=== PATIENT | female | born 1940 | race Caucasian/White ===

== ENCOUNTER → 2023-05-27 13:55 | Outpatient (REF) | payer MEDICARE, OTHER, SELFPAY | LOC: HWEVLT 13:55 | PROVIDERS: ATTENDING PHYSICIAN Radiology Diagnostic Radiology | DX: I83.893 Varicose veins of bilateral lower extremities with other complications (principal) | CPT/HCPCS: 93970 ==

== ENCOUNTER → 2023-07-16 13:07 | Outpatient (REF) | payer MEDICARE, OTHER, SELFPAY | LOC: HWEVLT 13:07 | PROVIDERS: ATTENDING PHYSICIAN Radiology Diagnostic Radiology | DX: I83.892 Varicose veins of left lower extremity with other complications (principal) | CPT/HCPCS: 36478 ==

== ENCOUNTER → 2023-07-31 11:29 | Outpatient (REF) | payer MEDICARE, OTHER, SELFPAY | LOC: HWEVLT 11:29 | PROVIDERS: ATTENDING PHYSICIAN Radiology Diagnostic Radiology | DX: I83.892 Varicose veins of left lower extremity with other complications (principal) | CPT/HCPCS: 93971 ==

== ENCOUNTER → 2023-11-06 14:38 | Outpatient (REF) | payer MEDICARE, OTHER, SELFPAY | LOC: HWRAD 14:38 | PROVIDERS: ATTENDING PHYSICIAN Urology | DX: N20.0 Calculus of kidney (principal) | CPT/HCPCS: 74018; 76775 ==

== ENCOUNTER → 2024-04-08 14:09 | Outpatient (REF) | payer MEDICARE, OTHER, SELFPAY | LOC: RAD 14:09 | PROVIDERS: ATTENDING PHYSICIAN Podiatrist Foot & Ankle Surgery; FAMILY PHYSICIAN Nurse Practitioner Adult Health | DX: M79.604 Pain in right leg (principal); R60.0 Localized edema | CPT/HCPCS: 93971 ==

== ENCOUNTER → 2024-04-23 13:57 | Outpatient (REF) | payer MEDICARE, OTHER, SELFPAY | LOC: RAD 13:57 | PROVIDERS: ATTENDING PHYSICIAN Nurse Practitioner Adult Health | DX: M25.551 Pain in right hip (principal); M25.552 Pain in left hip | CPT/HCPCS: 73522 ==

== ENCOUNTER 2024-06-09 07:12 | Inpatient (IN) | payer MEDICARE, OTHER, SELFPAY ==
[2024-05-14 11:23] LABS: Hematocrit 33.4 % (37.0-47.0); Hemoglobin 10.3 g/dL (12.0-16.0); Mean Corp Hgb Conc. 30.8 g/dL (33.0-37.0); Mean Corpuscular Hgb 26.1 pg (27.0-31.0); Mean Corpuscular Volume 84.6 fL (81.0-99.0); Platelet Count 355 10^3/uL (130-400); Red Blood Cell Count 3.95 10^6/uL (4.20-5.40); Red Cell Dist. Width 15.2 % (11.5-14.5); White Blood Cell Count 8.1 10^3/uL (4.8-10.8)
[2024-05-14 12:02] LABS: Glycohemoglobin (HgbA1c) 6.3 % (4.0-5.6)
[2024-05-14 12:12] LABS: ALT (SGPT) 11 U/L (0-35); AST (SGOT) 17 U/L (14-36); Albumin 3.8 g/dl (3.5-5.0); Alkaline Phosphatase 97 U/L (38-126); Blood Urea Nitrogen 37 mg/dl (7-17); Calcium 10.1 mg/dl (8.4-10.2); Carbon Dioxide 24 mmol/L (22-30); Chloride 106 mmol/L (98-107); Glucose 153 mg/dl (70-99); Potassium 4.3 mmol/L (3.5-5.1); Sodium 139 mmol/L (135-145); Total Bilirubin 0.6 mg/dl (0.2-1.3); Total Protein 7.1 g/dl (6.3-8.2); eGFR 40.05
[2024-05-14 13:14] LABS: Iron 45 ug/dl (37-170)
[2024-05-14 13:23] LABS: Percent Saturation 15 % (20-50); Total Iron Binding Capacity 286 ug/dl (265-497)
[2024-05-14 13:44] LABS: Reticulocyte Count 0.7 % (0.4-2.8)
[2024-05-14 14:08] VITALS: BMI 23.9
[2024-05-14 14:34] LABS: Ferritin 34.9 ng/ml (11.1-264.0)
[2024-05-14 15:06] LABS: Folate > 20.0 ng/ml (2.76-20); Vitamin B12 832 pg/ml (239-931)
[2024-06-01 11:59] VITALS: BMI 23.9
[2024-06-09] VITALS (22 sets, daily range): BP systolic 110–155; BP diastolic 52–93; O2SAT 99
[2024-06-09] MEDS: NORMOSOL-R/PLASMALYTE-A 1000 IV ×2 (07:57→13:31)
[2024-06-09] MEDS: CELEBREX 200 MG PO (07:57)
[2024-06-09] MEDS: TYLENOL 650 MG PO ×4 (07:57→19:40)
--- NOTE | 2024-06-09 10:18 | W.PN.UPDATE ---
Update Note
Progress Note Update
L CAN 06/09/24
-home PT OT VN
DVT ppx ASA
[id number]
CM-Takosubu
Bifacsicular hb
PVCs
-rele
CKD 3-no NSAIDs
Multifactorial anemia due to renal and iron deficiency
-IV iron daily this visit
UC-avoiding NSAIDs-+ GI ppx
--- NOTE | 2024-06-09 10:30 | W.DS.TRANS ---
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
-
Discharge Instructions:
Sleep Apnea Risk Low
Discharge Diagnosis/Procedures L CAN 06/09/24
Diet As tolerated
Activity With Walker
Driving Restrictions No driving
Bathing Restrictions OK to Shower
Other Services PT,VN,OT
Instructions:
Stand-Alone Forms: Total Hip/Knee Replacement D/C
Changes to Home Medications: Yes
Discharge Medications:
DC Medications w/original date entered in [employer])
[place] 3 1 cap PO DAILY 05/12/24
bilberry 1 cap PO DAILY 05/12/24
cholecalciferol (vitamin D3) 50 mcg (2,000 unit) capsule (Vitamin D3) 50 mcg PO Q48H 05/12/24
cholecalciferol (vitamin D3) 50 mcg (2,000 unit) capsule (Vitamin D3) 100 mcg PO Q48H 05/12/24
coQ10 (ubiquinol) 200 mg capsule 200 mg PO DAILY 05/12/24
cranberry extract 200 mg capsule 400 mg PO DAILY 05/12/24
cyanocobalamin (vitamin B-12) 1,000 mcg tablet (Vitamin B-12) 1,000 mcg PO DAILY 05/12/24
latanoprost (PF) 0.005 % eye drops in a dropperette 1 drp BOTH EYES MOWEFR 05/12/24
vitamin K2 90 mcg capsule 90 mcg PO DAILY 05/12/24
Vein And Circulation 1 cap PO DAILY 05/14/24
mupirocin 2 % topical ointment 1 applic intranasal BID #1 tube 05/14/24
acetaminophen 500 mg tablet 1,000 mg (2 x 500 mg) PO QID #0 tabs 06/09/24
aspirin 325 mg tablet 325 mg PO DAILY blood clot prevention #1 tab 06/09/24
dexamethasone 4 mg tablet 4 mg PO BID inflammation #6 tabs 06/09/24
docusate sodium 100 mg capsule (Colace) 100 mg PO BID stool softner #1 cap 06/09/24
famotidine 20 mg tablet 20 mg PO HS GI prophylaxis #30 tabs 06/09/24
gabapentin 300 mg capsule 300 mg PO HS sleep/pain #10 caps 06/09/24
magnesium 200 mg tablet 400 mg (2 x 200 mg) PO BID #0 tabs 06/09/24
magnesium hydroxide 400 mg/5 mL oral suspension (Milk of Magnesia) 30 ml PO HS PRN Constipation #1 mL 06/09/24
ondansetron 4 mg disintegrating tablet 4 mg PO Q6H PRN n/v #20 tabs 06/09/24
sennosides 8.6 mg tablet (Senokot) 17.2 mg (2 x 8.6 mg) PO BID laxative #2 tabs 06/09/24
tramadol 50 mg tablet 50 mg PO Q6H PRN 1 tab moderate pain, 2 if severe #30 tabs 06/09/24
Home Medication Changes
mupirocin 2 % topical ointment 1 applic intranasal BID #1 tube 05/14/24
acetaminophen 500 mg tablet 1,000 mg (2 x 500 mg) PO QID #0 tabs 06/09/24
aspirin 325 mg tablet 325 mg PO DAILY blood clot prevention #1 tab 06/09/24
dexamethasone 4 mg tablet 4 mg PO BID inflammation #6 tabs 06/09/24
docusate sodium 100 mg capsule (Colace) 100 mg PO BID stool softner #1 cap 06/09/24
famotidine 20 mg tablet 20 mg PO HS GI prophylaxis #30 tabs 06/09/24
gabapentin 300 mg capsule 300 mg PO HS sleep/pain #10 caps 06/09/24
magnesium 200 mg tablet 400 mg (2 x 200 mg) PO BID #0 tabs 06/09/24
magnesium hydroxide 400 mg/5 mL oral suspension (Milk of Magnesia) 30 ml PO HS PRN Constipation #1 mL 06/09/24
ondansetron 4 mg disintegrating tablet 4 mg PO Q6H PRN n/v #20 tabs 06/09/24
sennosides 8.6 mg tablet (Senokot) 17.2 mg (2 x 8.6 mg) PO BID laxative #2 tabs 06/09/24
tramadol 50 mg tablet 50 mg PO Q6H PRN 1 tab moderate pain, 2 if severe #30 tabs 06/09/24
Pending Results: No
[2024-06-09] MEDS: SUBLIMAZE 50 MCG IV (13:28)
[2024-06-09] MEDS: ULTRAM 50 MG PO (13:41)
[2024-06-09] MEDS: FERRLECIT 110 MG IV (14:08)
--- NOTE | 2024-06-09 14:31 | PTCARENOTE ---
Pt arrived to 2S in bed. Full assessment completed. B/L neurovascular assessment WDL. L hip mepilex C/D/I, pt with chronic venous wound on L inner ankle noted, foam applied. Telemetry applied. Pt unclear on hip precautions, education provided. IVF
infusing per order. Bed locked and in the lowest position, safety maintained. Oriented to room and call hines.
[2024-06-09] MEDS: ANCEF 5 IV (15:46)
[2024-06-09] MEDS: ASPIRIN 325 MG PO (17:24)
[2024-06-09] MEDS: DECADRON 4 MG IV (19:40)
[2024-06-09] MEDS: COLACE 100 MG PO (19:40)
[2024-06-09] MEDS: SENOKOT 17.2 MG PO (19:40)
[2024-06-09] MEDS: BACTROBAN 2% OINTMENT 1 APPLIC NASAL (19:40)
[2024-06-09] MEDS: PEPCID 40 MG PO (21:16)
[2024-06-09] MEDS: NEURONTIN 300 MG PO (21:16)
[2024-06-09] MEDS: DILAUDID 0.5 MG IV (21:40)
[2024-06-09] MEDS: NORMOSOL-R/PLASMALYTE-A IV (21:54)
[2024-06-10] MEDS: ANCEF 5 IV (00:07)
[2024-06-10] MEDS: TYLENOL 650 MG PO ×5 (00:07→16:08)
[2024-06-10 03:43] VITALS: BP 126/68
[2024-06-10 08:10] VITALS: BP 132/69
--- NOTE | 2024-06-10 09:10 | CM ---
Cm reviewed medical records. CM met with patient in room. Patient lives alone in a single floor apartment. Patient had history of VN, but could not remember agency. Patient denies history of SNF. Patient confirmed that she has a walker, canes, seat
cushion, elevated toilet seat and sock serene. Patient is active with PCP and uses [facility] for medication services.
Patient stated that he daughter was going to stay with her to provide support, but daughter has a medical emergency and has been admitted to the hospital. Patient stated that her son will provide transportation and assistance.
CM referred patient to [facility].
PLAN: Home with [facility]
[2024-06-10] MEDS: DECADRON 4 MG IV (09:15)
[2024-06-10] MEDS: BACTROBAN 2% OINTMENT 1 APPLIC NASAL (09:16)
[2024-06-10] MEDS: COLACE 100 MG PO (09:16)
[2024-06-10] MEDS: SENOKOT 17.2 MG PO (09:16)
[2024-06-10] MEDS: ASPIRIN 325 MG PO (09:16)
--- NOTE | 2024-06-10 09:41 | W.PN.ORTHO ---
Today's Communication / Plan
-
d/c
Assessment
.
Distal Motor Intact: Yes
Dressing:
Clean, dry and intact.
Assessment:
[id number]
CM-Takosubu
Bifacsicular hb
PVCs
-stable on tele
CKD 3-no NSAIDs
Multifactorial anemia due to renal and iron deficiency
-IV iron daily this visit --hgb stable and improved from pre-op
UC-avoiding NSAIDs-+ GI ppx
Plan
.
Surgery / Date: L CAN 06/09/24
DVT Prophylaxis: Aspirin
Activity:
Out of bed.
PT/OT
Discharge Plan: Home w/ VN
Subjective
.
.:
Patient resting comfortably.
Vital Signs and Labs
.
Vital Signs and Labs:
Lab Results
05/14/24 11:02
05/14/24 11:02
Temp Pulse Resp BP Pulse Ox
98.5 F 73 18 132/69 98
06/10/24 08:10 06/10/24 08:10 06/10/24 08:10 06/10/24 08:10 06/10/24 08:10
Non-invasive Hgb result: 11.9
Physical Exam
-
HEENT: No pallor, cyanosis, or jaundice. Throat clear.
NECK: Supple. No JVD.
RESPIRATORY: Lungs clear to auscultation.
CVS: S1, S2 normal. RRR.� No murmur, rub or gallop.
ABDOMEN: Soft, non-tender. No distension. BS+/normal.
EXTREMITIES: strength equal, no calf pain with palpation
FOSTER PARENT: AOx3. No focal deficits. 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
--- NOTE | 2024-06-10 09:46 | VNURNOTE ---
Chart reviewed. patient is s/p L CAN. She lives alone but stated a neighbor will pick her up from hospital and one of her sons will assist her at home post op. [facility] frequency, homebound status. Reviewed that [facility]
VN will call prior to visits. Referral placed in [facility].
[2024-06-10] MEDS: FERRLECIT 110 MG IV (09:48)
[2024-06-10 11:24] VITALS: BP 141/67
[2024-06-10 12:22] VITALS: BP 121/65; PULSE 73
[2024-06-10 15:20] VITALS: BP 133/63
--- NOTE | 2024-06-10 17:22 | PTCARENOTE ---
Discharge instructions reviewed with Pt, all questions answered; Monitor and IV removed; D/c'd to pick-up area via wheelchair.
== END 2024-06-10 17:15 | disposition home health service (06) | DRG 470 ==
LOC: 2 SOUTH 07:12
PROVIDERS: ADMITTING PHYSICIAN Orthopaedic Surgery; FAMILY PHYSICIAN Nurse Practitioner Adult Health; REFERRING PHYSICIAN Internal Medicine Cardiovascular Disease
PROC: 0SRB0JA Replacement of Left Hip Joint with Synthetic Substitute, Uncemented, Open Approach (ICD-10-PCS; 2024-06-10)
PROC: 0QH Lower Bones, Insertion (ICD-10-PCS; 2024-06-10)
DX: M16.12 Unilateral primary osteoarthritis, left hip (principal); I45.2 Bifascicular block; K51.90 Ulcerative colitis, unspecified, without complications; M85.852 Other specified disorders of bone density and structure, left thigh; N18.30 Chronic kidney disease, stage 3 unspecified; I12.9 Hypertensive chronic kidney disease with stage 1 through stage 4 chronic kidney disease, or unspecified chronic kidney disease; I25.10 Atherosclerotic heart disease of native coronary artery without angina pectoris; I49.3 Ventricular premature depolarization; I87.2 Venous insufficiency (chronic) (peripheral); I83.90 Asymptomatic varicose veins of unspecified lower extremity; K21.9 Gastro-esophageal reflux disease without esophagitis; K59.09 Other constipation; G43.109 Migraine with aura, not intractable, without status migrainosus; G25.0 Essential tremor; H40.9 Unspecified glaucoma; D50.9 Iron deficiency anemia, unspecified; D63.1 Anemia in chronic kidney disease; R73.03 Prediabetes; Z88.0 Allergy status to penicillin; Z90.710 Acquired absence of both cervix and uterus; Z90.721 Acquired absence of ovaries, unilateral
CPT/HCPCS: 36415; 73502; 80053; 82607; 82728; 82746; 83036; 83540; 83550; 85027; 85045; 86850; 86900; 86901; 87070; 97110; 97116; 97162; 97167; 97530; 97535; C1713; C1776; J2916

== ENCOUNTER → 2024-09-06 13:35 | Outpatient (REF) | payer MEDICARE, OTHER, SELFPAY | LOC: HWRAD 13:35 | PROVIDERS: ATTENDING PHYSICIAN Nurse Practitioner Adult Health | DX: M25.571 Pain in right ankle and joints of right foot (principal); M79.671 Pain in right foot | CPT/HCPCS: 73610; 73630 ==

== ENCOUNTER 2024-09-10 19:46 | Inpatient (IN) | payer MEDICARE, OTHER, SELFPAY ==
[2024-09-10 15:10] VITALS: BP 138/100
[2024-09-10 15:43] LABS: Hematocrit 31.1 % (37.0-47.0); Hemoglobin 9.5 g/dL (12.0-16.0); Mean Corp Hgb Conc. 30.5 g/dL (33.0-37.0); Mean Corpuscular Volume 84.3 fL (81.0-99.0); Nucleated Red Blood Cells % 0 %; Platelet Count 414 10^3/uL (130-400); Red Cell Dist. Width 15.9 % (11.5-14.5)
[2024-09-10 15:56] LABS: ALT (SGPT) < 10 U/L (0-35); AST (SGOT) 14 U/L (14-36); Albumin 4.0 g/dl (3.5-5.0); Alkaline Phosphatase 78 U/L (38-126); Blood Urea Nitrogen 46 mg/dl (7-17); Calcium 9.5 mg/dl (8.4-10.2); Carbon Dioxide 28 mmol/L (22-30); Chloride 105 mmol/L (98-107); Glucose 153 mg/dl (70-99); Potassium 4.6 mmol/L (3.5-5.1); Sodium 139 mmol/L (135-145); Total Protein 7.5 g/dl (6.3-8.2); eGFR 40.05
[2024-09-10 17:05] VITALS: BMI 24.5
[2024-09-10] MEDS: ANCEF 10 IV (17:26)
--- NOTE | 2024-09-10 18:47 | ED.GENMED ---
History of Present Illness
General
Chief Complaint: Skin Problem
Time Seen by Provider: 09/10/24 16:08
History of Present Illness
History of Present Illness:
84-year-old female presents the emergency department for evaluation of right lower leg redness and swelling in association with a wound to the right lateral ankle. She denies knowledge of any injuries to the ankle. She is able to ambulate without
significant pain. Was started on doxycycline earlier in the week for cellulitis but the redness continues to worsen. Denies any claudication symptoms or paresthesias to the right foot
Review of Systems
Review of Systems
Allergies reviewed?: Yes
All Other Systems: ROS reviewed and negative except as documented in HPI and ROS
Phy Exam
Physical Exam
Physical Exam:
GEN: Well appearing, NAD, WDWN
HEENT: Oral mucosa moist, no scleral icterus
Cardiac: Regular rate
Lung: No respiratory distress, no tachypnea
MSK: Diffuse erythema circumferentially to the right lower leg from mid calf to the foot with diffuse edema. There is a superficial wound to the right lateral malleolus with no purulent discharge. Dorsalis pedis and posterior tibialis pulses are
strong by Doppler
Skin: Good color, no pallor or jaundice, no rashes
Neuro: AO x3, moves all extremities freely
Psych: Calm, cooperative
Course
Orders/Labs/Results
Orders:
Orders
09/10/24 15:25
Complete Blood Count/With Diff Urgent
Comprehensive Metabolic Panel Urgent
Lactic Acid Urgent
Blood Culture Urgent
BING Source: Blood/Venous
Specimen Description:
09/10/24 16:50
CeFAZolin 2 GRAM [Ancef] 2 grams in 10 ml IV NOW
Venous Doppler Lwr Ext Rt [[facility] Venous LOWER Ext RT] Urgent
Comment:
Reason For Exam: R leg edema
Abnormal Lab Results
09/10/24
15:25
RBC 3.69 L 10^6/uL
(4.20-5.40)
Hgb 9.5 L g/dL
(12.0-16.0)
Hct 31.1 L %
(37.0-47.0)
MCH 25.7 L pg
(27.0-31.0)
MCHC 30.5 L g/dL
(33.0-37.0)
RDW 15.9 H %
(11.5-14.5)
Plt Count 414 H 10^3/uL
(130-400)
Absolute Monos (auto) 0.7 H 10^3/uL
(0.1-0.6)
Monocytes % 9.5 H %
(1.7-9.3)
BUN 46 H mg/dl
(7-17)
Creatinine 1.3 H mg/dL
(0.6-1.0)
Glucose 153 H mg/dl
(70-99)
09/10/24 15:25
09/10/24 15:25
Vital Signs
Initial and Last Documented VS:
Initial Vital Signs
Temp Pulse Resp BP Pulse Ox
98.3 F 88 18 138/100 99
09/10/24 15:10 09/10/24 15:10 09/10/24 15:10 09/10/24 15:10 09/10/24 15:10
Last Documented Vital Signs
Temp Pulse Resp BP Pulse Ox
98.3 F 88 18 138/100 99
09/10/24 15:10 09/10/24 15:10 09/10/24 15:10 09/10/24 15:10 09/10/24 18:47
MDM/Problems Addressed
MDM/Problems Addressed:
Due to worsening cellulitis and failure of outpatient antibiotics will admit for IV antibiotics. No e/o DVT on ultrasound
*Pulse Oximetry
SaO2: 99
Patient hypoxic: no
*Critical Care Note
Total Time (30-74mins, 75-104mins- exclusive of procedures): Not Applicable
ED Attending Note
-
Portions of this chart may have been created with voice recognition software.� Occasional wrong word or��sound alike� substitutions may have occurred due to the inherent limitations of voice recognition software.
Discharge Plan
Departure
Patient Disposition: Admit
Date of Disposition: 09/10/24
Time of Disposition: 18:51
Admit to: Med/Surg
Presentation/result/management discussed w/ accepting MD/DO: Hospitalist
Discharge Problem:
Cellulitis of leg, right
Prescriptions:
No Action
cyanocobalamin (vitamin B-12) [Vitamin B-12] 1,000 mcg Tablet
1,000 mcg PO DAILY
cholecalciferol (vitamin D3) [Vitamin D3] 50 mcg (2,000 unit) Capsule
50 mcg PO Q48H
Rx Instructions:
Alternates w/ 100 mcg
cholecalciferol (vitamin D3) [Vitamin D3] 50 mcg (2,000 unit) Capsule
100 mcg PO Q48H
Rx Instructions:
Alternated w/ 5-mcg
cranberry extract 200 mg Capsule
400 mg PO DAILY
coQ10 (ubiquinol) 200 mg Capsule
200 mg PO DAILY
vitamin K2 90 mcg Capsule
90 mcg PO DAILY
latanoprost (PF) 0.005 % Dropperette
1 drp BOTH EYES MOWEFR
Rx Instructions:
at HS
[place] 3
1 cap PO DAILY
bilberry
1 cap PO DAILY
mupirocin 2 % ointment
1 applic intranasal BID Qty: 1 0RF
Vein And Circulation
1 cap PO DAILY
acetaminophen 500 mg Tablet
1,000 mg PO QID Qty: 0 0RF
magnesium 200 mg Tablet
400 mg PO BID Qty: 0 0RF
sennosides [Senokot] 8.6 mg tablet
17.2 mg PO BID Qty: 2 0RF
aspirin 325 mg tablet
325 mg PO DAILY Qty: 1 0RF
Rx Instructions:
Take with food
tramadol 50 mg tablet
50 mg PO Q6H PRN (Reason: 1 tab moderate pain, 2 if severe) Qty: 30 0RF
Rx Instructions:
ongoing therapy
famotidine 20 mg tablet
20 mg PO HS Qty: 30 0RF
Rx Instructions:
post-op
magnesium hydroxide [Milk of Magnesia] 400 mg/5 mL suspension
30 ml PO HS PRN (Reason: Constipation) Qty: 1 0RF
dexamethasone 4 mg tablet
4 mg PO BID Qty: 6 0RF
Rx Instructions:
take with food
post-op use only
docusate sodium [Colace] 100 mg capsule
100 mg PO BID Qty: 1 0RF
gabapentin 300 mg capsule
300 mg PO HS Qty: 10 0RF
Rx Instructions:
*POST-OP USE ONLY
ondansetron 4 mg tablet,disintegrating
4 mg PO Q6H PRN (Reason: n/v) Qty: 20 0RF
Rx Instructions:
take 1/2h b/f pain med if recurrent nausea
allow to dissolve in mouth w/o water
Referrals:
Eve Lema CRNP [Family Provider, Internal Medicine]
Interventions
Interventions:
*Risk Screen - Suicide Last Done: 09/10/24 15:13
*General Assessment Last Done: 09/10/24 15:13
*Neglect/Abuse Screening Last Done: 09/10/24 15:13
*ED- Fall Risk Assessment Last Done: 09/10/24 15:14
Discharge Date and Time
Print Language: KAZAKH
--- NOTE | 2024-09-10 19:41 | HPS.HSE ---
Family Physician
-
Family Physician: BIANKA Cevallos
Chief Complaint
-
RLE pain / redness
History of Present Illness
Patient is an 84y F with PMH significant for PVD / varicose veins and prior LE ulcers who presents to ED complaining of ulcer on the R ankle with associated pain, swelling and redness. Patient states that she noted this about one week ago. She
denies any injury, trauma, etc. She was seen by her PCP on Friday and started on doxycycline. She had a follow-up visit today and was advised to present to the ED when the area did not appear improved.
Patient denies any fevers / chills, N/V/D, etc.
Patient reports prior history of wounds due to venous insufficiency. Seen previously at [facility] for [facility]ound Care.
Medical History
Past Medical History
Past Medical History: Reports Other
Additional Past Medical History:
Venous Insufficiency
Venous Ulcers
CKD IV
GERD
Takotsubo's Cardiomyopathy (x 2 episodes)
Asthma
Tremulous Dysphonia
Past Surgical History: Reports Other
Additional Past Surgical History:
Bilateral Carpal Tunnel Surgery
L CAN
Hysterectomy / Unilateral Oophorectomy
D&C
Lumpectomy (benign)
T&A
Vein Stripping x 2
Social History
Tobacco: Non-smoker
Alcohol: None
Drug: None
Family History
Family History: Not pertinent
Allergies / Home Medications
Allergies reflects when Allergies were last updated in [employer].
Home Medications with original date entered in [employer]
Allergy/Medication List:
Allergies
Allergy/AdvReac Type Severity Reaction Status Date / Time
Penicillins Allergy Tongue Verified 09/10/24 15:12
Swelling
Sulfa (Sulfonamide AdvReac Headache Verified 09/10/24 15:12
Antibiotics)
Home Medications
cholecalciferol (vitamin D3) 50 mcg (2,000 unit) capsule (Vitamin D3) 50 mcg PO DAILY Supplement 05/12/24
cranberry extract 200 mg capsule 400 mg PO DAILY 05/12/24
cyanocobalamin (vitamin B-12) 1,000 mcg tablet (Vitamin B-12) 1,000 mcg PO DAILY 05/12/24
latanoprost (PF) 0.005 % eye drops in a dropperette 1 drp BOTH EYES MOWEFR@1800 Eye Condition 05/12/24
vitamin K2 90 mcg capsule 90 mcg PO DAILY Supplement 05/12/24
magnesium 200 mg tablet 400 mg (2 x 200 mg) PO BID #0 tabs 06/09/24
acetaminophen 650 mg tablet,extended release 650 mg PO Q12H 09/10/24
docusate sodium 100 mg capsule (Colace) 100 mg PO BIDPRN PRN CONSTIPATION 09/10/24
omega-3 fatty acids-fish oil 684 mg-1,200 mg capsule,delayed release 1 cap PO DAILY 09/10/24
Review of Systems
-
History Source: Patient
A 12 point ROS was completed and negative except as noted: Yes
Constitutional: Denies Fever or Chills
Respiratory: Denies Cough or Trouble Breathing
Cardiac: Denies Chest Pain or Palpitations
Abdomen/GI: Denies Abdominal Pain, Nausea, Vomiting or Diarrhea
: Denies Dysuria or Flank Pain
Musculoskeletal: Reports Edema; Denies Joint Pain
Skin: Reports Other (R ankle superficial wound. Redness / pain.)
Neurological: Denies Dizzy or Headache
Physical Exam
Vital Signs
Vital Signs
Temp Pulse Resp BP Pulse Ox
98.3 F 88 18 138/100 99
09/10/24 15:10 09/10/24 15:10 09/10/24 15:10 09/10/24 15:10 09/10/24 18:47
Physical Exam
General: Other (84y F in no acute distress.)
HEENT: Moist mucous membranes
Respiratory: Clear; No Wheezes, Rales or Rhonchi
Cardiac: S1/S2 and Regular Rhythm; No Murmur
GI: Soft, Non Tender, Non Distended and Normal Bowel Sounds
Musculoskeletal: No Clubbing and No Cyanosis
Skin: Other (R lateral ankle with superficial skin breakdown - no bleeding / discharge. Surrounding erythema and induration involving the lower leg. Pos tenderness.)
Neuro: AO x 3
Laboratory Results
-
09/10/24 15:25
09/10/24 15:25
Laboratory Results
Lactic Acid 1.2 mmol/L (0.7-2.0) 09/10/24 15:25
Total Bilirubin 0.5 mg/dl (0.2-1.3) 09/10/24 15:25
AST 14 U/L (14-36) 09/10/24 15:25
ALT < 10 U/L (0-35) 09/10/24 15:25
Alkaline Phosphatase 78 U/L (38-126) 09/10/24 15:25
Impression/Plan
-
A/P: Patient is an 84y F with PMH significant for CKD and venous insufficiency with history of ulcers who presents to ED complaining of pain, redness and superficial wound to the R ankle.
RLE Cellulitis
Right Ankle Superficial Ulcer
Chronic Venous Insufficiency
- Admit for further evaluation and treatment.
- Failed outpatient abx with doxycycline x 5 days.
- IV Ancef for now.
- Local Wound Care.
- US negative for DVT.
- Check arterial US / PVI as well.
- Follow for clinical improvement.
CKD IV
- Stable. Renal function is at / near known baseline.
- Follow for any changes.
Chronic Anemia
- Stable. Hgb is at / near known baseline.
- Follow for any changes.
DVT Prophylaxis: Subcut Heparin
Code Status: Full
[2024-09-10 21:00] VITALS: BP 154/88; BMI 24.1
[2024-09-10] MEDS: HEPARIN 5000 UNITS SC (21:32)
[2024-09-10] MEDS: TYLENOL 650 MG PO (22:15)
[2024-09-10 22:24] LABS: Iron 35 ug/dl (37-170)
[2024-09-10 22:34] LABS: Total Iron Binding Capacity 290 ug/dl (265-497)
[2024-09-10 23:00] VITALS: BP 137/75
[2024-09-10 23:25] LABS: Ferritin 39.1 ng/ml (11.1-264.0)
[2024-09-10 23:40] LABS: Vitamin B12 950 pg/ml (239-931)
[2024-09-11] MEDS: ROXICODONE 5 MG PO (01:48)
[2024-09-11] MEDS: ANCEF 10 IV ×2 (05:27→17:13)
--- NOTE | 2024-09-11 05:55 | PTCARENOTE ---
Patient arrived on unit @2049 via stretcher from ED, ambulate to bed with single point can with standby assist. Patient AAOx3 c/o 5/10 pain to legs and shoulders. Patient requested tylenol for pain, refusing to have a stronger pain med. Skin
assessment completed, oriented to unit, call hines within reach.
[2024-09-11 06:00] VITALS: BMI 23.6
[2024-09-11 06:40] LABS: Hematocrit 28.8 % (37.0-47.0); Hemoglobin 8.8 g/dL (12.0-16.0); Mean Corp Hgb Conc. 30.6 g/dL (33.0-37.0); Mean Corpuscular Volume 83.7 fL (81.0-99.0); Platelet Count 335 10^3/uL (130-400); Red Cell Dist. Width 15.9 % (11.5-14.5)
[2024-09-11 07:01] LABS: Blood Urea Nitrogen 40 mg/dl (7-17); Calcium 9.5 mg/dl (8.4-10.2); Carbon Dioxide 25 mmol/L (22-30); Chloride 107 mmol/L (98-107); Estimated Creatinine Clearance 33 ml/min; Glucose 97 mg/dl (70-99); Potassium 4.4 mmol/L (3.5-5.1); Sodium 140 mmol/L (135-145); eGFR 44.08
[2024-09-11] MEDS: TYLENOL 650 MG PO ×3 (07:13→22:44)
[2024-09-11 07:34] VITALS: BP 141/74
[2024-09-11] MEDS: HEPARIN 5000 UNITS SC ×2 (07:46→22:19)
--- NOTE | 2024-09-11 08:08 | W.PN.HOSP.TC ---
Today's Communication/Plan
-
MR study
Assessment / Plan
Assessment / Plan
Physical Exam
General: Other (84y F in no acute distress.)
HEENT: Moist mucous membranes
Respiratory: Clear; No Wheezes, Rales or Rhonchi
Cardiac: S1/S2 and Regular Rhythm; No Murmur
GI: Soft, Non Tender, Non Distended and Normal Bowel Sounds
Musculoskeletal: No Clubbing and No Cyanosis
Skin: Other (R lateral ankle with superficial skin breakdown - no bleeding / discharge. Surrounding erythema and induration involving the lower leg. Pos tenderness.)
Neuro: AO x 3
Patient is an 84y F with PMH significant for CKD and venous insufficiency with history of ulcers who presents to ED complaining of pain, redness and superficial wound to the R ankle.
RLE Cellulitis
Right Ankle Superficial Ulcer
Chronic Venous Insufficiency
- Failed outpatient abx with doxycycline x 5 days.
- IV Ancef for now.
- Local Wound Care.
- US negative for DVT.
- Check arterial US / PVI as well.
- Check MRI right heel
- Follow for clinical improvement.
CKD seems c/w IIIB
Monitor renal function
- Follow for any changes.
Anemia of chronic disease
- Stable. Hgb is at / near known baseline.
- Follow for any changes.
DVT Prophylaxis: Subcut Heparin
Code Status: Full
Total time spent to see the patient, examine the patient, review data and lab result, discuss treatment plan with patient, nursing staff around 55 minutes
Anticipated Discharge: > 48 hours
Subjective/Interval History
-
Date of Service: September 11, 2024
Less pain in right heel area
No fevers
Objective Data
-
Labs:
Laboratory Results
09/11/24
06:27
WBC 5.8
Hgb 8.8 L
Hct 28.8 L
Plt Count 335
Sodium 140
Potassium 4.4
Chloride 107
Carbon Dioxide 25
BUN 40 H
Creatinine 1.2 H
Glucose 97
Calcium 9.5
Vital Signs:
Vital Signs
Temp Pulse Resp BP Pulse Ox
97.5 F 78 14 141/74 99
09/11/24 07:34 09/11/24 07:34 09/11/24 07:34 09/11/24 07:34 09/11/24 07:34
I&O
09/10/24 09/11/24 09/12/24
06:59 06:59 06:59
Intake Total 480 / 480
Balance 480 / 480
[2024-09-11 15:23] VITALS: BP 140/79
[2024-09-11] MEDS: MAGNESIUM OXIDE 500 MG PO (22:19)
[2024-09-11 23:16] VITALS: BP 138/78
[2024-09-12 06:00] VITALS: BMI 23.7
[2024-09-12] MEDS: ANCEF 10 IV ×2 (06:32→18:08)
[2024-09-12 07:26] VITALS: BP 136/79
[2024-09-12] MEDS: HEPARIN 5000 UNITS SC ×2 (08:15→20:14)
[2024-09-12] MEDS: TYLENOL 650 MG PO (08:15)
[2024-09-12] MEDS: MAGNESIUM OXIDE 500 MG PO ×2 (08:15→20:14)
--- NOTE | 2024-09-12 08:26 | W.PN.HOSP.TC ---
Today's Communication/Plan
-
.
Assessment / Plan
Assessment / Plan
Physical Exam
General: Other (84y F in no acute distress.)
HEENT: Moist mucous membranes
Respiratory: Clear; No Wheezes, Rales or Rhonchi
Cardiac: S1/S2 and Regular Rhythm; No Murmur
GI: Soft, Non Tender, Non Distended and Normal Bowel Sounds
Musculoskeletal: No Clubbing and No Cyanosis
Skin: Other (R lateral ankle with superficial skin breakdown - no bleeding / discharge. Surrounding erythema and induration involving the lower leg. Pos tenderness.)
Neuro: AO x 3
Patient is an 84y F with PMH significant for CKD and venous insufficiency with history of ulcers who presents to ED complaining of pain, redness and superficial wound to the R ankle.
RLE Cellulitis
Right Ankle lateral surface Superficial Ulcer
Chronic Venous Insufficiency
- Failed outpatient abx with doxycycline x 5 days.
- IV Ancef for now.
- Local Wound Care.
- US negative for DVT.
- Check arterial US / PVI as well.
- Check MRI right heel
- Follow for clinical improvement.
CKD seems c/w IIIB
Monitor renal function
- Follow for any changes.
Anemia of chronic disease
- Stable. Hgb is at / near known baseline.
- Follow for any changes.
DVT Prophylaxis: Subcut Heparin
Code Status: Full
Total time spent to see the patient, examine the patient, review data and lab result, discuss treatment plan with patient, nursing staff around 55 minutes
Anticipated Discharge: 24 - 48 hours
Subjective/Interval History
-
Date of Service: September 12, 2024
no worsening pain in the heel
knee pain c/w OA
Objective Data
-
Vital Signs:
Vital Signs
Temp Pulse Resp BP Pulse Ox
97.9 F 86 20 136/79 97
09/12/24 07:26 09/12/24 07:26 09/12/24 07:26 09/12/24 07:26 09/12/24 07:26
I&O
09/11/24 09/12/24 09/13/24
06:59 06:59 06:59
Intake Total 1620 / 1620 480 / 480
Balance 1620 / 1620 480 / 480
--- NOTE | 2024-09-12 09:48 | PTCARENOTE ---
Pt c/o unrelieved 8 pain in right foot. MD made aware, new order provided, see MAR.
[2024-09-12] MEDS: TYLENOL 325 MG PO (09:51)
--- NOTE | 2024-09-12 12:32 | CM ---
Addendum entered by Martina lGeason 09/12/24 14:41:
PT screening done, will need to determine patients needs once full evaluation has been completed.
Original Note:
CM following for discharge planning needs. Pt admitted with RLE cellulitis.
Patient reports living alone in a first floor apartment. Patient had history with [facility]; no history of SNF. Patient reports having a walker, canes, seat cushion, elevated toilet seat and sock serene.
Plan: CM to follow to coordinate discharge planning needs as identified.
PCP: Eve Lema
Pharm: [facility] in [place]
[2024-09-12 14:58] VITALS: BP 132/84
[2024-09-12] MEDS: TYLENOL 1000 MG PO (18:07)
[2024-09-12] MEDS: FLUSH (NSS) 2 FLUSH IV (18:08)
[2024-09-12 23:20] VITALS: BP 139/75
[2024-09-13] MEDS: TYLENOL 1000 MG PO ×2 (03:17→21:23)
[2024-09-13] MEDS: ANCEF 10 IV ×2 (05:04→17:09)
[2024-09-13 05:55] LABS: Hematocrit 30.9 % (37.0-47.0); Hemoglobin 9.4 g/dL (12.0-16.0); Mean Corp Hgb Conc. 30.4 g/dL (33.0-37.0); Mean Corpuscular Volume 83.3 fL (81.0-99.0); Platelet Count 380 10^3/uL (130-400); Red Cell Dist. Width 16.0 % (11.5-14.5)
[2024-09-13 06:00] VITALS: BMI 23.7
[2024-09-13 06:11] LABS: Blood Urea Nitrogen 38 mg/dl (7-17); Calcium 9.6 mg/dl (8.4-10.2); Carbon Dioxide 29 mmol/L (22-30); Chloride 107 mmol/L (98-107); Estimated Creatinine Clearance 33 ml/min; Glucose 105 mg/dl (70-99); Potassium 4.6 mmol/L (3.5-5.1); Sodium 140 mmol/L (135-145); eGFR 44.08
[2024-09-13 07:54] VITALS: BP 139/79
[2024-09-13] MEDS: HEPARIN 5000 UNITS SC ×2 (08:14→19:16)
[2024-09-13] MEDS: MAGNESIUM OXIDE 500 MG PO ×2 (08:14→19:16)
--- NOTE | 2024-09-13 11:45 | WOUNDNOTE ---
[facility] RN note: Patient admitted with right lateral ankle wound and cellulitis
See H&P for complete history.
PMH: Per physician note, Venous Insufficiency
Venous Ulcers
CKD IV
GERD
Takotsubo's Cardiomyopathy (x 2 episodes)
Asthma
Tremulous Dysphonia
Wound Location and type/assessment: Patient admitted with right lateral ankle wound. Wound appears dry, but patient said she did not drainage earlier. Wound is tender to touch. Patient has + 2 edema. SARBJIT from 09/13 within normal limits. MRI revealed
no osteo. She explained she use to wear compression to LE daily, but can no longer apply. Sacrum and heels intact. Patient ambulates with walker and cane.
Appetite: Good
Pressure redistribution devices in place: Accumax,, keep heels off-loaded when in bed
Plan: Will keep heel covered with foam and apply compression bilaterally with Tubi, per patient request.
Will confirm orders with hospitalist and update nurse. Updated care plan and will follow as needed.
Note to case management of equipment requested for discharge:
Recommend follow up at wound care center upon discharge.
--- NOTE | 2024-09-13 12:02 | CON.VAS ---
Addendum entered and electronically signed by Tristen Ann III, MD 09/13/24 16:45:
This patient was seen and examined in collaboration with Darlyn Serrano. I agree with the history and physical exam as well as the assessment and plan. I have the following additions:
84-year-old female
History of chronic venous disease
Multiple superficial vein procedures bilaterally, most recent involving the left short saphenous in July 2023
Now with right lateral ankle ulcer with associated cellulitis
Currently receiving intravenous antibiotics
Personally reviewed her venous duplex from May 2023 which demonstrates reflux in the right short saphenous. Right great saphenous absent
Personally reviewed her lower extremity arterial studies from September 13, 2024. Her SARBJIT and TBI are within normal limits. No evidence of stenosis from the common femoral artery through the popliteal artery by duplex examination.
This is likely a venous ulceration given her history and unremarkable arterial studies. My initial recommendation is for continued local wound care, aggressive compression therapy at all times, leg elevation while at rest, avoid having legs in
dependent positions for prolonged periods of time during the day, follow-up with [place] wound care center. I would like to see her for a short interval follow-up in the office after discharge with an updated venous insufficiency duplex so that
we can discuss options for endovenous ablation of the short saphenous vein on the right to hopefully augment wound healing. She is in agreement with this plan.
Call with questions or concerns
Signed:
Tristen Ann III, MD
Vascular Surgery
[facility]
Original Note:
Consultation
Consultation Request
Date/Time Consultation Requested: 09/13/24, 10am
Date/Time Consultation Performed: 09/13/24, 12pm
Requesting Provider: Solange Finnegan
Performing Provider: Tristen Ann
Reason for Consultation: venous statis wound RLE
Medical History
-
Chief Complaint: venous stasis wound RLE
History of Present Illness:
Liset Jurado is an 84yo F with a hx of CKD IV, chronic venous insufficiency, and bilateral LE venous stasis ulcers s/p multiple EVLT procedures (within ~1 yr) & venous removal (30yrs ago) who p/w new RLE wound with erythema and pain. Vascular
surgery consulted to eval venous stasis wound, candidacy for surgical intervention.
Patient reports shallow wound appeared gradually on lateral R ankle about 3 weeks ago after a period of pain in the region. No precipitating trauma to the area. She follows with [facility] wound care as she has a hx of such wounds on her ankles,
bilaterally, 2/2 chronic venous insufficiency. Wound on L ankle recently healed, was present for 1 yr, treated w wound care & EVLT of L small saphenous at [place] (July 2023). She has had multiple venous ablations in LEs over the years, and more
distantly had LE vein removal (~30 yrs prior). Current R ankle wound was noted to have increased pain & erythema by outside provider, she was started on course of doxycycline ~1 week ago due to c/f cellulitis, and admitted to [place] after
symptoms did not resolve. Pt reports no fever/chills or purulent drainage from the wound bed. Reports this is similar to prior wounds on ankles. Pt does not smoke, no hx of DM, no hx of LE claudication. On presentation to ED, pt VSS, afebrile, WBC
not elevated. RLE US negative for DVT. MRI negative for signs of osteomyelitis, just notable for ectatic vessels. R peripheral vascular US with SARBJIT demonstrated no arterial stenosis or signs of inflow defect. SARBJIT normal (1.6). R-sided dorsalis pedis
and posterior tibialis pulses visible on doppler US. Pt admitted to floor & started on IV ancef.
Today, pt reports no new pain, no f/c, no new drainage from wound, comfortable. Says she has a follow-up appt scheduled with wound care at [place] next week.
Past Medical History
Past Medical History: Other (CKD IV; takotsubo cardiomyopathy)
Past Surgical History: Other (bilat LE vein removal; EVLT ablation bilateral LEs)
Social History
Tobacco: Non-Smoker
Allergies / Home Medications
Allergy/AdvReac Type Severity Reaction Status Date / Time
Penicillins Allergy Tongue Verified 09/10/24 15:12
Swelling
Sulfa (Sulfonamide Allergy Headache Verified 09/10/24 20:54
Antibiotics)
�Medication �Instructions �Recorded �Confirmed �Type
cholecalciferol (vitamin D3) 50 50 mcg PO DAILY Supplement 05/12/24 09/10/24 History
mcg (2,000 unit) capsule (Vitamin
D3)
cranberry extract 200 mg capsule 400 mg PO DAILY Supplement 05/12/24 09/10/24 History
cyanocobalamin (vitamin B-12) 1,000 mcg PO DAILY Supplement 05/12/24 09/10/24 History
1,000 mcg tablet (Vitamin B-12)
latanoprost (PF) 0.005 % eye drops 1 drp BOTH EYES MOWEFR@1800 Eye 05/12/24 09/10/24 History
in a dropperette Condition
vitamin K2 90 mcg capsule 90 mcg PO DAILY Supplement 05/12/24 09/10/24 History
magnesium 200 mg tablet 400 mg (2 x 200 mg) PO BID #0 tabs 06/09/24 09/10/24 Rx
acetaminophen 650 mg 650 mg PO Q12H Pain 09/10/24 09/10/24 History
tablet,extended release
docusate sodium 100 mg capsule 100 mg PO BIDPRN PRN CONSTIPATION 09/10/24 09/10/24 History
(Colace)
omega-3 fatty acids-fish oil 684 1 cap PO DAILY Supplement 09/10/24 09/10/24 History
mg-1,200 mg capsule,delayed release
Review of Systems
-
History Source: Patient
Constitutional: Reports No Symptoms
Vascular: Reports Leg Pain / Claudication (denies claudication)
Musculoskeletal: Reports Joint Pain
Skin: Reports Other (wound on R ankle w associated pain )
Physical Exam
Vital Signs
Temp Pulse Resp BP Pulse Ox
97.9 F 84 20 139/79 97
09/13/24 07:54 09/13/24 07:54 09/13/24 07:54 09/13/24 07:54 09/13/24 07:54
Lab Results
09/13/24 05:24
09/13/24 05:24
Physical Exam
General: Well Developed, Well Nourished and No Apparent Distress
HEENT: Normocephalic, Anicteric and Atraumatic
Respiratory: Non Labored Respirations
Musculoskeletal: Edema (bilat LE pitting edema to mid-osorio (+1-2) )
Skin: Other (bilat LE with changes c/w venous stasis dermatitis; RLE with woodiness & induration of skin mid-calf downward, with mild erythema & warmth; R lateral ankle shallow wound without drainage)
Neuro: Awake, Alert and Oriented
Psych: Calm
Pulses: Right Dorsalis Pedis: Doppler (present (admission) ) and Right Posterior Tibial: Doppler (present (admission))
Assessment / Plan
-
Patient is an 84yo F with a hx of CKD IV, chronic venous insufficiency, and bilateral LE venous stasis ulcers s/p multiple bilat LE EVLT procedures & vein removal who p/w new RLE chronic stasis wound with erythema and pain & c/f infection; vascular
consulted to eval for surgical candidacy.
Assessment: Pt with extensive hx of bilat ankle wounds 2/2 known chronic venous insufficiency & skin breakdown w stasis dermatitis. US imaging r/o DVT; doppler & physical exam r/o arterial obstruction (distal pulses intact). Peripheral vascular US
demonstrated no regions of venous reflux. No signs of inflow defect, SARBJIT wnl. Prior study (May 2023) demonstrated reflux in R small saphenous vein - possible candidate for R EVLT if patient desires to facilitate R ankle wound healing, but no signs
demonstrating acute need for vascular surgical intervention this admission.
Plan:
- Continue proper wound care; attend f/u appt w [place] wound care in 1 week
- RLE elevation & compression
- F/u outpatient jayden Ann for RLE venous insufficiency study; consider R small saphenous EVLT
- Signed off
Data Reviewed
-
Ultrasound: Image Personally Visualized and interpreted and Report Reviewed by me
Labs: Labs Reviewed by me
Critical Care Time (in minutes): 40
Total Time Spent with Patient (in minutes): 15
--- NOTE | 2024-09-13 12:36 | W.PN.HOSP.TC ---
Today's Communication/Plan
-
continue IV Ancef
wound care/compression
Vascular consult given history of venous ablations
Assessment / Plan
Assessment / Plan
Assessment:
RLE Cellulitis
Right Ankle lateral surface Superficial venous Ulcer - POA
Chronic Venous Insufficiency
- Failed outpatient abx with doxycycline x 5 days.
- continue IV Ancef, day 3
- compression
- wound care service following
- SARBJIT without significant inflow disease
- MRI without osteomyelitis
- Vascular surgery evaluation
CKD seems c/w IIIB
Monitor renal function
- Follow for any changes.
Anemia of chronic disease
- Stable. Hgb is at / near known baseline.
- Follow for any changes.
DVT Prophylaxis: SC Heparin
Code Status: Full
Anticipated Discharge: 24 - 48 hours
Subjective/Interval History
-
Date of Service: September 13, 2024
reports some discomfort around wound, no fevers
Objective Data
-
Labs:
Laboratory Results
09/13/24
05:24
WBC 6.6
Hgb 9.4 L
Hct 30.9 L
Plt Count 380
Sodium 140
Potassium 4.6
Chloride 107
Carbon Dioxide 29
BUN 38 H
Creatinine 1.2 H
Glucose 105 H
Calcium 9.6
Vital Signs:
Vital Signs
Temp Pulse Resp BP Pulse Ox
97.9 F 84 20 139/79 97
09/13/24 07:54 09/13/24 07:54 09/13/24 07:54 09/13/24 07:54 09/13/24 07:54
I&O
09/12/24 09/13/24 09/14/24
06:59 06:59 06:59
Intake Total 1620 / 1620 1500 / 1500
Balance 1619 1500 / 1499
Physical Exam
-
General: No Apparent Distress
HEENT: Normocephalic and Atraumatic
Respiratory: Clear to Auscultation; Negative Wheezes
Cardiac: Regular Rhythm and S1/S2
GI: Soft and Nontender
Skin: Other (R lateral venous ulcer with surrounding cellulitis)
Neuro: AO x 3
Hematologic / Lymphatic: No Lymphadenopathy
Psych: Calm
Data Reviewed
-
Total Time Spent with Patient (in minutes): 42
Labs: Labs Reviewed by me
--- NOTE | 2024-09-13 13:16 | WOUNDNOTE ---
RIGHT LATERAL ANKLE
[2024-09-13 15:24] VITALS: BP 130/78
--- NOTE | 2024-09-13 17:05 | CM ---
Alert awake oriented patient who lives alone in a 1 story home with 1 step to enter.He is independent in all activities of daily living.He was offered VN he declined need.He dos not drive.
VN hx / No SNF history
Pharmacy [facility] [address]
PCP DR Montalvo
PLAN Home Declined VN
[2024-09-13] MEDS: XALATAN OPHTHALMIC SOLUTION 1 DROP OPHTH (17:10)
[2024-09-13 23:10] VITALS: BP 125/68
[2024-09-14] MEDS: ANCEF 10 IV (05:03)
[2024-09-14 05:35] LABS: Hematocrit 28.1 % (37.0-47.0); Hemoglobin 8.8 g/dL (12.0-16.0); Mean Corp Hgb Conc. 31.3 g/dL (33.0-37.0); Mean Corpuscular Volume 82.6 fL (81.0-99.0); Platelet Count 361 10^3/uL (130-400); Red Cell Dist. Width 16.0 % (11.5-14.5)
[2024-09-14 06:00] VITALS: BMI 23.8
[2024-09-14 06:06] LABS: Blood Urea Nitrogen 34 mg/dl (7-17); Calcium 9.3 mg/dl (8.4-10.2); Carbon Dioxide 28 mmol/L (22-30); Chloride 108 mmol/L (98-107); Estimated Creatinine Clearance 36 ml/min; Glucose 87 mg/dl (70-99); Potassium 4.7 mmol/L (3.5-5.1); Sodium 140 mmol/L (135-145); eGFR 48.94
[2024-09-14 07:07] VITALS: BP 135/79
[2024-09-14] MEDS: HEPARIN 5000 UNITS SC (08:09)
[2024-09-14] MEDS: TYLENOL 1000 MG PO (08:09)
[2024-09-14] MEDS: MAGNESIUM OXIDE 500 MG PO (08:09)
--- NOTE | 2024-09-14 11:32 | W.PN.HOSP.TC ---
Today's Communication/Plan
-
dc to home after PT eval
Assessment / Plan
Assessment / Plan
Assessment:
RLE Cellulitis
Right Ankle lateral surface Superficial venous Ulcer - POA
Chronic Venous Insufficiency
- Failed outpatient abx with doxycycline x 5 days.
- MRI without osteomyelitis
- continue IV Ancef, day 06/10
- Vascular evaluated and recommended: continued local wound care, aggressive compression therapy at all times, leg elevation while at rest, avoid having legs in dependent positions for prolonged periods of time during the day, follow-up with
[place] wound care center. also OP f/u for updated venous insufficiency duplex and discuss options for endovenous ablation of the short saphenous vein on the right to hopefully augment wound healing
CKD seems c/w IIIB
Monitor renal function
- Follow for any changes.
Anemia of chronic disease
- Stable. Hgb is at / near known baseline.
- Follow for any changes.
DVT Prophylaxis: SC Heparin
Code Status: Full
More than 30 minutes spent in discharge including
Final examination of the patient
Summarizing hospital stay
Instructions for continuing care to all relevant caregivers
Preparation of discharge records, prescriptions, and referral forms
Total time spent (in minutes): 41
Anticipated Discharge: Today
Subjective/Interval History
-
Date of Service: September 14, 2024
resting comfortably, no complaints at present
Objective Data
-
Labs:
Laboratory Results
09/14/24
05:08
WBC 6.4
Hgb 8.8 L
Hct 28.1 L
Plt Count 361
Sodium 140
Potassium 4.7
Chloride 108 H
Carbon Dioxide 28
BUN 34 H
Creatinine 1.1 H
Glucose 87
Calcium 9.3
Vital Signs:
Vital Signs
Temp Pulse Resp BP Pulse Ox
98.2 F 81 17 135/79 97
09/14/24 07:07 09/14/24 07:07 09/14/24 07:07 09/14/24 07:07 09/14/24 07:07
I&O
09/13/24 09/14/24 09/15/24
06:59 06:59 06:59
Intake Total 1500 / 1500 990 / 990
Balance 1500 / 1500 990 / 990
Physical Exam
-
General: No Apparent Distress
HEENT: Normocephalic and Atraumatic
Respiratory: Negative Wheezes
Cardiac: Regular Rhythm and S1/S2
GI: Soft
Skin: Other (R lateral venous ulcer with surrounding cellulitis)
Neuro: AO x 3
Psych: Calm
Data Reviewed
-
Total Time Spent with Patient (in minutes): 42
Labs: Labs Reviewed by me
--- NOTE | 2024-09-14 11:38 | W.DS.TRANS ---
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
-
Discharge Instructions:
Discharge Diagnosis/Procedures RLE venous stasis ulcer with cellulitis
Diet Regular
Activity As tolerated
Others Tests Venous ultrasound appointment: 10/11 at 10 AM
Instructions:
Stand-Alone Forms:
Changes to Home Medications: No
Discharge Medications:
DC Medications w/original date entered in [facility]
cholecalciferol (vitamin D3) 50 mcg (2,000 unit) capsule (Vitamin D3) 50 mcg PO DAILY Supplement 05/12/24
cranberry extract 200 mg capsule 400 mg PO DAILY Supplement 05/12/24
cyanocobalamin (vitamin B-12) 1,000 mcg tablet (Vitamin B-12) 1,000 mcg PO DAILY Supplement 05/12/24
latanoprost (PF) 0.005 % eye drops in a dropperette 1 drp BOTH EYES MOWEFR@1800 Eye Condition 05/12/24
vitamin K2 90 mcg capsule 90 mcg PO DAILY Supplement 05/12/24
magnesium 200 mg tablet 400 mg (2 x 200 mg) PO BID #0 tabs 06/09/24
acetaminophen 650 mg tablet,extended release 650 mg PO Q12H Pain 09/10/24
docusate sodium 100 mg capsule (Colace) 100 mg PO BIDPRN PRN CONSTIPATION 09/10/24
omega-3 fatty acids-fish oil 684 mg-1,200 mg capsule,delayed release 1 cap PO DAILY Supplement 09/10/24
cephalexin 500 mg capsule 500 mg PO QID #24 caps 09/14/24
Home Medication Changes
Pending Results: No
Total time spent discharging patient (in min): 42
--- NOTE | 2024-09-14 12:27 | CM ---
MD entered order for discharge.
Spoke with pt in room.
Pt indicated no skilled home needs. Pt declined VN .
Son Noble will drive her home.
PLAN Home no needs
[2024-09-14 14:52] VITALS: BP 129/79
== END 2024-09-14 15:31 | disposition home or self-care (01) | DRG 300 ==
LOC: 3 WEST ACU 19:46
PROVIDERS: Emergency Medicine; Internal Medicine; ADMITTING PHYSICIAN Hospitalist; ATTENDING PHYSICIAN Internal Medicine; CONSULT PHYSICIAN Surgery Vascular Surgery; EMERGENCY PHYSICIAN Emergency Medicine; FAMILY PHYSICIAN Nurse Practitioner Adult Health
DX: I83.213 Varicose veins of right lower extremity with both ulcer of ankle and inflammation (principal); L03.115 Cellulitis of right lower limb; I87.8 Other specified disorders of veins; D63.1 Anemia in chronic kidney disease; N18.32 Chronic kidney disease, stage 3b; I73.9 Peripheral vascular disease, unspecified; K21.9 Gastro-esophageal reflux disease without esophagitis; J45.909 Unspecified asthma, uncomplicated; R49.0 Dysphonia; Z96.642 Presence of left artificial hip joint; Z90.710 Acquired absence of both cervix and uterus; Z90.721 Acquired absence of ovaries, unilateral; Z88.0 Allergy status to penicillin; Z88.2 Allergy status to sulfonamides
CPT/HCPCS: 73721; 80048; 80053; 82607; 82728; 83540; 83550; 83605; 85025; 85027; 87040; 93922; 93925; 93971; 96374; 97162; 99284

== ENCOUNTER → 2024-09-20 12:35 | Outpatient (REF) | payer MEDICARE, OTHER, SELFPAY | LOC: WOUND 12:35 | PROVIDERS: ATTENDING PHYSICIAN Surgery; FAMILY PHYSICIAN Nurse Practitioner Adult Health | DX: I87.311 Chronic venous hypertension (idiopathic) with ulcer of right lower extremity (principal); L97.312 Non-pressure chronic ulcer of right ankle with fat layer exposed; I87.2 Venous insufficiency (chronic) (peripheral); N18.32 Chronic kidney disease, stage 3b | CPT/HCPCS: 11042; 99203 ==

== ENCOUNTER → 2024-10-01 11:05 | Outpatient (REF) | payer MEDICARE, OTHER, SELFPAY | LOC: WOUND 11:05 | PROVIDERS: ATTENDING PHYSICIAN Surgery; FAMILY PHYSICIAN Nurse Practitioner Adult Health | DX: I87.311 Chronic venous hypertension (idiopathic) with ulcer of right lower extremity (principal); L97.312 Non-pressure chronic ulcer of right ankle with fat layer exposed; I87.2 Venous insufficiency (chronic) (peripheral); N18.32 Chronic kidney disease, stage 3b | CPT/HCPCS: 11042 ==

== ENCOUNTER → 2024-10-08 13:44 | Outpatient (REF) | payer MEDICARE, OTHER, SELFPAY | LOC: WOUND 13:44 | PROVIDERS: ATTENDING PHYSICIAN Surgery; FAMILY PHYSICIAN Nurse Practitioner Adult Health | DX: I87.311 Chronic venous hypertension (idiopathic) with ulcer of right lower extremity (principal); L97.312 Non-pressure chronic ulcer of right ankle with fat layer exposed; I87.2 Venous insufficiency (chronic) (peripheral); N18.32 Chronic kidney disease, stage 3b | CPT/HCPCS: 11042 ==

== ENCOUNTER → 2024-10-11 10:10 | Outpatient (REF) | payer MEDICARE, OTHER, SELFPAY | LOC: RAD 10:10 | PROVIDERS: ATTENDING PHYSICIAN Surgery Vascular Surgery; FAMILY PHYSICIAN Nurse Practitioner Adult Health | DX: I87.2 Venous insufficiency (chronic) (peripheral) (principal) | CPT/HCPCS: 93970 ==

== ENCOUNTER → 2024-10-15 14:06 | Outpatient (REF) | payer MEDICARE, OTHER, SELFPAY | LOC: WOUND 14:06 | PROVIDERS: ATTENDING PHYSICIAN Surgery; FAMILY PHYSICIAN Nurse Practitioner Adult Health | DX: I87.311 Chronic venous hypertension (idiopathic) with ulcer of right lower extremity (principal); L97.312 Non-pressure chronic ulcer of right ankle with fat layer exposed; I87.2 Venous insufficiency (chronic) (peripheral); N18.32 Chronic kidney disease, stage 3b | CPT/HCPCS: 11042 ==